=== PATIENT | male | born 1990 | race Caucasian/White ===

== ENCOUNTER → 2017-07-02 11:29 | Day surgery (SDC) | payer OTHER, SELFPAY ==
[2017-06-29 13:14] VITALS: BMI 26.6
[2017-07-02] VITALS (8 sets, daily range): BP systolic 111–131; BP diastolic 53–77; PULSE 75–91; RESP 9–16; TEMP 36.6–36.9; O2SAT 96–100; BMI 25.9
--- NOTE | 2017-07-02 | DI.RAD.S_ITS ---
PROCEDURE: XR KNEE RT 1TO2V INDICATIONS: 27-year-old male undergoing anterior cruciate ligament graft repair. TECHNIQUE: 2 intraoperative views of the knee were acquired. COMPARISON: [facility], , KNEE WITHOUT CONTRAST, 05/05/2017, 7:34. FINDINGS: Bones: No fractures or dislocations. Femoral and tibial tunnels are present from anterior cruciate ligament graft repair. No suspicious bony lesions. Soft tissues: No suspicious soft tissue densities. IMPRESSION: Fluoroscopic guidance for anterior cruciate ligament graft repair. Dictated by: Hoang Law M.D. on 07/02/2017 at 14:39 Approved by: Hoang Law M.D. on 07/02/2017 at 14:40
[2017-07-02] MEDS: CEFAZOLIN 2 GM/100 ML FROZ.PIGGY IV (12:10)
[2017-07-02] MEDS: LACTATED RINGERS 1,000 ML 42 ML IV (12:10)
--- NOTE | 2017-07-02 12:11 | PM.PREOP ---
Pre-operative Note Interval Note Changes to the H&P: None. Pre-op Check: History & Physical Reviewed and Exam Performed
--- NOTE | 2017-07-02 13:16 | SUR.OPER ---
Supine on padded OR bed, head on pillow, arms secured on padded arm boards at <90 degrees abduction, legs uncrossed, safety belt at thigh, tape over blanket over lower legs.
[2017-07-02] MEDS: BUPIVACAINE 0.25% (PF) 30 ML VIAL INJ (13:26)
[2017-07-02] MEDS: SODIUM CHLORIDE IRRIG SOLUTION 1,000 ML, BACITRACIN 50,000 UNIT IRR (13:45)
[2017-07-02] MEDS: fentaNYL 100 MCG/2 ML INJ 50 MCG IV (15:10)
[2017-07-02] MEDS: fentaNYL 100 MCG/2 ML INJ 25 MCG IV (15:15)
[2017-07-02] MEDS: OXYCODONE/ACETAMINOPHEN 5/325 TABLET 1 TAB PO (15:25)
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
== END ==
PROVIDERS: PCP Nurse Practitioner Family; Visit Provider Orthopaedic Surgery
PROC: (CPT 29888; principal; 2017-07-02 14:15)
DX: M23.611 Other spontaneous disruption of anterior cruciate ligament of right knee (principal); Y93.23 Activity, snow (alpine) (downhill) skiing, snowboarding, sledding, tobogganing and snow tubing; M94.261 Chondromalacia, right knee
CPT/HCPCS: 29888; 73560; 76000; J0690; J1100; J2250; J2405; J2704; J3010